=== PATIENT | male | born 1940 | race Two or more races ===

== ENCOUNTER 2018-01-26 11:39 | Outpatient (CLI) | payer OTHER, BC ==
[2018-02-02] MEDS ORDERED: ATENOLOL50 MG PO (13:22)
== END 2018-01-26 12:00 | disposition home or self-care (01) ==
LOC: RAD 11:39
DX: D68.8 Other specified coagulation defects (principal); M51.36 Other intervertebral disc degeneration, lumbar region

== ENCOUNTER → 2018-01-26 12:24 | Outpatient (CLI) | payer OTHER, BC | END | disposition home or self-care (01) | LOC: EKG 12:24 | DX: I10 Essential (primary) hypertension (principal); D68.8 Other specified coagulation defects; M51.36 Other intervertebral disc degeneration, lumbar region ==

== ENCOUNTER 2018-02-04 06:00 | Day surgery (SDC) | payer OTHER, BC ==
[~2018-02-04 06:00] MED LIST: ATENOLOL50 MG PO
== END 2018-02-04 15:05 | disposition home or self-care (01) ==
LOC: CIR.AMB 06:00
DX: M48.061 Spinal stenosis, lumbar region without neurogenic claudication (principal)